=== PATIENT | female | born 1970 | race Caucasian/White ===

== ENCOUNTER → 2017-07-29 | Outpatient (CLI) | payer BC ==
[~2017-07-29] MED LIST: AMIT10TA6 PO; GADAVIST IV PRN; IBUP-1050 PO; LISI-729 PO; SUMA25TA PO
--- NOTE | 2017-07-29 14:31 | DIAGNOSTIC IMAGING REPORT ---
MRI OF THE PELVIS WITH AND WITHOUT CONTRAST CLINICAL HISTORY: Septated ovarian mass. Worsening pelvic pain and bloating. COMPARISON STUDY: None available at time of interpretation. TECHNIQUE: Utilizing a 1.5 So magnet and dedicated coil, multiplanar, multiecho imaging of the pelvis was performed pre and postcontrast administration. Injection of 11 cc of Gadavist IV was uneventful. FINDINGS: The uterus is not visualized and is likely surgically absent. There is no pelvic lymphadenopathy. There is no pelvic ascites. The left ovary is normal. Note is made of a 2 cm peripherally enhancing right ovarian lesion shown on axial post contrast image 10 of . This suggests a corpus luteal cyst. A few additional smaller peripherally enhancing foci within the right ovary likely reflect small follicles. In addition, note is made of a 4.3 x 2.8 cm tubular T2 hyperintense nonenhancing lesion along the superior medial aspect of the right ovary. The appearance favors a dilated fallopian tube with hydrosalpinx. There is no nodular enhancement on the postcontrast images. No suspicious marrow replacement is present. Bladder is unremarkable. No cervical abnormalities are identified on this exam. IMPRESSION: 1. 4.3 x 2.8 cm tubular T2 hyperintense nonenhancing structure along the medial aspect of the right ovary. The appearance favors hydrosalpinx. No nodular enhancement. This could be correlated with prior imaging studies. If these studies become available for comparison, an addendum could be issued. 2. 2 cm peripherally enhancing right ovarian lesion which likely reflects a corpus luteal cyst. A follow-up pelvic ultrasound in 6 weeks is recommended to ensure resolution. 3. No pelvic lymphadenopathy or ascites. Electronically signed by: Tello Tello M.D. 07/29/2017 2:29 PM Dictated Date/Time: 07/29/2017 1:07 PM
== END | disposition home or self-care (01) ==
LOC: C.MRIBC 10:17
PROVIDERS: ATTEND Physician Assistant
DX: N83.9 Noninflammatory disorder of ovary, fallopian tube and broad ligament, unspecified (principal); R93.5 Abnormal findings on diagnostic imaging of other abdominal regions, including retroperitoneum; R93.8 Abnormal findings on diagnostic imaging of other specified body structures; R10.2 Pelvic and perineal pain; N94.10 Unspecified dyspareunia; R14.0 Abdominal distension (gaseous)